=== PATIENT | female | born 1985 | race Caucasian/White ===

== ENCOUNTER 2016-09-10 12:54 | Emergency (ER) | payer SELFPAY ==
[~2016-09-10] VITALS: Ht 162.6 cm; Wt 85.0 kg
[~2016-09-10 12:54] MED LIST: NITR-58 PO
[2016-09-10 13:07] VITALS: Ht 162.6 cm; Wt 85.0 kg
--- NOTE | 2016-09-10 14:48 | EN ---
Date/Time of Note Date/Time of Note DATE: 09/10/16 TIME: 14:48 ER Progress Note 30-year-old female is here with her children and her children were seen in flu tract however patient states that she herself or to see her primary care doctor as she wants to have blood work done however now that her children are being seen and can be discharged home she would rather just go home. JAIR LARRY PA-C Sep 10, 2016 14:48
== END 2016-09-10 14:47 | disposition left against medical advice (07) ==
LOC: E/R 12:54
DX: Z53.21 Procedure and treatment not carried out due to patient leaving prior to being seen by health care provider (principal)

== ENCOUNTER 2017-04-03 09:36 | Emergency (ER) | payer BC ==
[~2017-04-03] VITALS: Ht 165.1 cm; Wt 75.5 kg
[2017-04-03 09:52] VITALS: Ht 165.1 cm; Wt 75.5 kg
--- NOTE | 2017-04-03 11:47 | ERA ---
ER Documentation Chief Complaint Date/Time DATE: 04/03/17 TIME: 11:43 Chief Complaint Complains of feeling dizzy and lightheaded x 1 week HPI 1-year-old otherwise healthy female presenting with a chief complaint of general malaise, dizziness and worried that she is . Patient wants a test. Patient has no other complaints. Patient states that she has no other symptoms. Review of symptoms was unremarkable. Denies any recent travel, drug use, alcohol abuse, sick contacts. Denies any previous medical conditions. Last menstrual period was 6 weeks ago. ROS All systems reviewed and are negative except as per history of present illness. Medications Home Meds Active Scripts Nitrofurantoin Monohyd Macrocr* (Macrobid*) 100 Mg Capsr, 100 MG PO BID, #14 CAP 0 Refills Prov:LES LAKHANI PA-C 10/06/15 Allergies Allergies: Coded Allergies: No Known Allergy (Unverified , 10/06/15) PMhx/Soc History of Surgery: No Anesthesia Reaction: No Hx Neurological Disorder: No Hx Respiratory Disorders: No Hx Cardiac Disorders: No Hx Psychiatric Problems: No Hx Miscellaneous Medical Probl: Yes ( WITH IUD) Hx Alcohol Use: No Hx Substance Use: No Hx Tobacco Use: No Physical Exam Vitals Vital Signs Date Time Temp Pulse Resp B/P Pulse Ox O2 Delivery O2 Flow Rate FiO2 04/03/17 09:52 98.4 73 20 69/ 98 Physical Exam Const: Well-appearing. Overweight. No acute distress. Head: Normocephalic, Atraumatic. Eyes: Non-injected; No discharge. EOMI and PAWEL bilaterally. Ears: Normal External Ears, EACs clear, TM normal bilaterally without erythema. Nose: Normal external nose; no discharge, or sinus tenderness. Oral: No oral edema visualized. Mucous membranes moist and pink. Neck: No cervical lymphadenopathy, or masses palpated. Supple ~ No meningismus. Pulm: Good air movement in upper and lower respiratory tracts. Clear to auscultation bilaterally. No dyspnea or stridor. Cardio: Regular rate and rhythm; No murmurs, gallops or rubs auscultated. Radial pulses 2+ bilaterally. No cyanosis noted. Capillary refill less than 2 seconds. Abd: Normal bowel sounds. Soft, non tender, non distended. MS: Normal motor strength, normal tone with gross examination. Skin: No petechiae or rashes. Good turgor. Back: No midline, flank or CVA tenderness. Ext: No edema. Normal movement of all extremities grossly observed. Neur: Neurovascularly intact bilaterally. Psych: Normal Mood and Affect. Procedures/MDM Well-appearing 31-year-old female no acute distress presenting with a request for test. test was ordered by patient jose. No abdominal or pelvic pain. I have little suspicion for acute pathologies. No suspicion for dehydration, shock, or anemia. Likely diagnosis is oligomenorrhea. And weakness due to unknown etiology. Departure Diagnosis: Primary Impression: Oligomenorrhea, unspecified Qualified Code: N91.5 - Oligomenorrhea, unspecified type Condition: Stable Additional Instructions: Patient TREVON Tavarez PA-C Apr 03, 2017 11:47
== END 2017-04-03 12:45 | disposition left against medical advice (07) ==
LOC: FTE 09:36
DX: N91.5 Oligomenorrhea, unspecified (principal)
CPT/HCPCS: 99282

== ENCOUNTER 2018-01-02 22:47 | Emergency (ER) | END 2018-01-03 01:38 | disposition home or self-care (01) ==